=== PATIENT | male | born 1990 ===

== ENCOUNTER 2017-09-13 21:08 | Emergency (ER) | payer OTHER ==
[2017-09-13 21:25] VITALS: BP 138/69
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
== END 2017-09-13 22:45 | disposition home or self-care (01) ==
LOC: ED 21:08
DX: T20.10XA Burn of first degree of head, face, and neck, unspecified site, initial encounter (principal); F17.200 Nicotine dependence, unspecified, uncomplicated; F12.10 Cannabis abuse, uncomplicated; V49.49XA Driver injured in collision with other motor vehicles in traffic accident, initial encounter; Y93.89 Activity, other specified; Y92.89 Other specified places as the place of occurrence of the external cause; Y99.8 Other external cause status
CPT/HCPCS: 99282